=== PATIENT | male | born 1940 | race Caucasian/White ===

== ENCOUNTER 2016-11-24 09:12 | Outpatient (CLI) | payer OTHER | END 2016-11-24 18:16 | disposition home or self-care (01) | LOC: SMI 09:12 | PROVIDERS: ATTEND Internal Medicine | DX: S83.272A Complex tear of lateral meniscus, current injury, left knee, initial encounter (principal); M25.462 Effusion, left knee; M22.42 Chondromalacia patellae, left knee; R60.1 Generalized edema; M25.512 Pain in left shoulder; X58.XXXA Exposure to other specified factors, initial encounter; Y93.89 Activity, other specified; Y92.89 Other specified places as the place of occurrence of the external cause; Y99.8 Other external cause status | CPT/HCPCS: 73721 ==

== ENCOUNTER 2017-03-16 08:08 | Outpatient (CLI) | payer OTHER | END 2017-03-16 19:28 | disposition home or self-care (01) | LOC: SRD 08:08 | PROVIDERS: ATTEND Internal Medicine | DX: Z01.818 Encounter for other preprocedural examination (principal); R05 Cough | CPT/HCPCS: 71020-TC ==